=== PATIENT | male | born 1970 | race African-American/Black ===

== ENCOUNTER 2019-12-03 16:41 | Emergency (ER) | payer BC ==
[2019-12-03 16:51] VITALS: BP 123/89; PULSE 84; TEMP 98.7; BMI 25.7
--- NOTE | 2019-12-03 16:52 | PDOC ---
Rapid Medical Evaluation Chief Complaint: Pain, Acute Time Seen by Provider: 12/03/19 16:50 Medical Evaluation: Allergies Allergy/AdvReac Type Severity Reaction Status Date / Time No Known Allergies Allergy Verified 12/03/19 16:49 Vital Signs Temp Pulse Resp BP Pulse Ox 98.7 F 84 18 123/89 99 12/03/19 16:45 12/03/19 16:45 12/03/19 16:45 12/03/19 16:45 12/03/19 16:45 12/03/19 16:51 CC: rt arm swelling, no injury, no fever Exam: generalized edema to RUE, vss, no discrete fluid collection Plan: r/o dvt rue Discharge Disposition - Diagnosis Swelling of right upper extremity - Referrals Referrals: Bianka Kurtz MD [Primary Care Provider] - - Patient Instructions - Post Discharge Activity
--- NOTE | 2019-12-03 19:14 | PDOC ---
History of Present Illness - General Chief Complaint: Pain, Acute Stated Complaint: REF BY DOCTOR Time Seen by Provider: 12/03/19 16:50 - History of Present Illness Initial Comments: 12/03/19 19:09 49-year-old male presents for evaluation of right arm swelling x1 day. Treated for cellulitis of his left lower extremity about 2 weeks ago his symptoms resolved. He has no systemic symptoms at this time Past History - Medical History Allergies/Adverse Reactions: Allergies Allergy/AdvReac Type Severity Reaction Status Date / Time No Known Allergies Allergy Verified 12/03/19 16:49 Home Medications: Ambulatory Orders Cephalexin [Keflex] 500 mg PO QID #40 capsule 12/03/19 Sulfamethoxazole/Trimethoprim [Bactrim Ds -] 1 tab PO BID #14 tablet 12/03/19 COPD: No - Immunization History Immunization Up to Date: No - Psycho-Social/Smoking History Smoking History: Never smoked Have you smoked in the past 12 months: No Information on smoking cessation initiated: No - Substance Abuse Hx (Audit-C & DAST Scrn) How often the patient has a drink containing alcohol: Never Score: In Men: 4 or > Positive; In Women: 3 or > Positive: 0 Screen Result (Pos requires Nsg. Audit-10AR): Negative In the last yr the pt used illegal drug/Rx for NonMed reason: No Score: Yes response is considered Positive: 0 Screen Result (Positive result requires Nsg. DAST-10): Negative Review of Systems - Review of Systems Constitutional: No: Chills, Diaphoresis, Fever, Malaise, Night Sweats *Physical Exam - Vital Signs Last Vital Signs Temp Pulse Resp BP Pulse Ox 98.7 F 84 18 123/89 99 12/03/19 16:45 12/03/19 16:45 12/03/19 16:45 12/03/19 16:45 12/03/19 19:04 - Physical Exam 12/03/19 19:09 Right upper extremity is erythemic on the anterior aspect of the arm extending about 5 cm above the elbow to about 5 cm below the elbow there is no sensitivity or induration but warmth and erythema. No pain with passive motion of the elbow wrist forearm or hand fingers are nonpainful with range of motion. No gross sensorimotor deficits neurovascular intact Medical Decision Making - Medical Decision Making 07/07/20 19:10 Ultrasound Doppler is negative for DVT. Examination consistent with cellulitic infection probably early. Bactrim and Keflex follow-up with primary care physician. Patient also said his left thigh was swollen. On my exam left thigh skin color and temperature normal thigh and calf are both soft and nontender without gross sensorimotor deficits no evidence of cellulitis or DVT. I have reviewed the pathophysiology with the patient. They are in agreement with the treatment plan all questions were answered to their satisfaction. Understanding for follow-up without fail was also conveyed to the patient. Again they are in agreement. Discharge - Discharge Information Problems reviewed: Yes Clinical Impression/Diagnosis: Swelling of right upper extremity, Cellulitis Condition: Stable Disposition: HOME - Admission No - Additional Discharge Information Prescriptions: Sulfamethoxazole/Trimethoprim [Bactrim Ds -] 1 tab PO BID #14 tablet Cephalexin [Keflex] 500 mg PO QID #40 capsule - Follow up/Referral Referrals: Bianka Kurtz MD [Primary Care Provider] - - Patient Discharge Instructions Additional Instructions: Please take the antibiotics as directed and return to the emergency room should you have further issues. Tylenol and Motrin for pain. Without fail follow-up with your primary care physician in 1 to 2 days for further evaluation and treatment options. - Post Discharge Activity
== END 2019-12-03 19:29 | disposition home or self-care (01) ==
LOC: JER 16:41
DX: L03.113 Cellulitis of right upper limb (principal)
CPT/HCPCS: 93971; 99283-25